=== PATIENT | female | born 1960 | race Caucasian/White ===

== ENCOUNTER 2018-06-09 21:30 | Emergency (ER) | payer OTHER ==
[~2018-06-09] VITALS: Ht 165.1 cm; Wt 52.2 kg
--- NOTE | 2018-06-09 22:23 | NUR ---
Dr. Kat at bedside for MSE.
[2018-06-09] MEDS ORDERED: predniSONE 10 MG TABLET PO ONE (22:30)
[2018-06-09] MEDS ORDERED: ALBUTEROL SULFATE 2.5 MG/3 ML NEBU NEB ONE (22:30)
[2018-06-09] MEDS ORDERED: IPRATROPIUM BROMIDE 0.5 MG/2.5 ML NEBU NEB ONE (22:30)
[2018-06-09] MEDS ORDERED: predniSONE 50 MG TABLET ONE (22:33)
[2018-06-09] MEDS ORDERED: predniSONE 10 MG TABLET ONE (22:33)
--- NOTE | 2018-06-09 22:35 | NUR ---
Respiratory at bedside.
[2018-06-09] MEDS ORDERED: IPRATROPIUM BROMIDE 0.5 MG/2.5 ML NEBU ONE (22:37)
[2018-06-09] MEDS ORDERED: ALBUTEROL SULFATE 2.5 MG/3 ML NEBU ONE (22:37)
--- NOTE | 2018-06-09 23:51 | NUR ---
Patient discharged to home in stable conditon. Written and verbal after care instructions given. Patient verbalizes understanding of instructions. Pt ambulated out of ER with steady gait, no acute signs of distress, VSS, all belongings taken.
[2018-06-09 23:53] VITALS: BP 114/69
== END 2018-06-09 23:53 | disposition home or self-care (01) ==
LOC: ER 21:34
DX: J45.901 Unspecified asthma with (acute) exacerbation (principal); F17.200 Nicotine dependence, unspecified, uncomplicated; Z88.0 Allergy status to penicillin
CPT/HCPCS: A4663; J3590; J7512

== ENCOUNTER 2022-08-09 21:03 | Emergency (ER) | payer OTHER ==
[~2022-08-09] VITALS: Ht 165.1 cm; Wt 52.2 kg
[2022-08-09 21:30] LABS: HEMATOCRIT 40.6 % (31.2-41.9); MEAN CORPUSCULAR HEMOGLOBIN 32.5 uug (24.7-32.8); MEAN CORPUSCULAR VOLUME 94.9 fL (75.5-95.3); PLATELET COUNT (AUTO) 201 K/uL (179-408)
[2022-08-09] MEDS ORDERED: MAG HYDROX/AL HYDROX/SIMETH 30 ML LIQUID UDC PO ONE (21:30)
[2022-08-09] MEDS ORDERED: IPRATROPIUM BROMIDE 0.5 MG/2.5 ML NEBU NEB ONE (21:30)
[2022-08-09] MEDS ORDERED: predniSONE 20 MG TABLET PO ONE (21:30)
[2022-08-09] MEDS ORDERED: ALBUTEROL SULFATE 2.5 MG/3 ML NEBU NEB ONE (21:30)
[2022-08-09] MEDS ORDERED: IPRATROPIUM BROMIDE 0.5 MG/2.5 ML NEBU ONE (21:36)
[2022-08-09] MEDS ORDERED: ALBUTEROL SULFATE 2.5 MG/ 0.5 ML NEBU ONE (21:36)
[2022-08-09 21:46] LABS: CREATININE 0.9 mg/dL (0.6-1.3); MAGNESIUM 1.9 mg/dL (1.8-2.4); POTASSIUM 3.5 mmol/L (3.5-5.1)
[2022-08-09] MEDS ORDERED: predniSONE 20 MG TABLET ONE (22:04)
[2022-08-09] MEDS ORDERED: MAG HYDROX/AL HYDROX/SIMETH 30 ML LIQUID UDC ONE (22:04)
[2022-08-09] MEDS ORDERED: ALBU6.7H9 INH (23:03)
[2022-08-09] MEDS ORDERED: ALBU0.63 NEB (23:03)
[2022-08-09] MEDS ORDERED: AZIT250T13 PO (23:03)
[2022-08-09] MEDS ORDERED: FLUT12AE5 INH (23:03)
[2022-08-09] MEDS ORDERED: PRED20TA PO (23:03)
--- NOTE | 2022-08-09 23:12 | NUR ---
Patient discharged to home in stable condition. A/Ox4. Ambulatory with a syeadt gait. NAD noted. Written and verbal after care instructions given. Patient verbalizes understanding of instructions. Stressed follow up or return to ER for worsening s/s. All belonings with patient.
[2022-08-09 23:13] VITALS: BP 121/85
== END 2022-08-09 23:14 | disposition home or self-care (01) ==
LOC: ER 21:07
DX: J45.902 Unspecified asthma with status asthmaticus (principal); U07.1 COVID-19; F17.210 Nicotine dependence, cigarettes, uncomplicated; Z88.0 Allergy status to penicillin
CPT/HCPCS: 99291; 80048; 83735; 85025; 36415; 71045; 94644; J7512; A4663; J3590

== ENCOUNTER 2022-10-24 10:46 | Emergency (ER) | payer OTHER ==
[~2022-10-24] VITALS: Ht 165.1 cm; Wt 52.2 kg
[~2022-10-24 10:46] MED LIST: ALBU0.63 NEB; ALBU6.7H9 INH; AZIT250T13 PO; FLUT12AE5 INH; PRED20TA PO
[2022-10-24] MEDS ORDERED: ALBUTEROL SULFATE 2.5 MG/3 ML NEBU ONE (11:23)
[2022-10-24] MEDS ORDERED: IPRATROPIUM BROMIDE 0.5 MG/2.5 ML NEBU ONE (11:23)
[2022-10-24] MEDS ORDERED: ALBUTEROL SULFATE 2.5 MG/3 ML NEBU NEB ONE (11:30)
[2022-10-24] MEDS ORDERED: IPRATROPIUM BROMIDE 0.5 MG/2.5 ML NEBU NEB ONE (11:30)
--- NOTE | 2022-10-24 11:32 | NUR ---
PATIENT WAS SEEN BY MD. SHAYLA SCHROEDER IN PROCESS. COVID SWAB SENT TO LAB
[2022-10-24] MEDS ORDERED: PRED50TA PO (12:30)
[2022-10-24] MEDS ORDERED: GUAI600T53 PO (12:30)
--- NOTE | 2022-10-24 12:31 | NUR ---
DC AND FOLLOW UP INSTRUCTIONS GIVEN AND EXPLAINED TO PATIENT WHO STATES SHE UNDERSTANDS ALL INSTRUCTIONS
== END 2022-10-24 12:31 | disposition home or self-care (01) ==
LOC: ER 10:49
DX: J06.9 Acute upper respiratory infection, unspecified (principal); B97.89 Other viral agents as the cause of diseases classified elsewhere; Z20.822 Contact with and (suspected) exposure to COVID-19; J45.909 Unspecified asthma, uncomplicated; Z88.0 Allergy status to penicillin
CPT/HCPCS: 71045; A4663; J3590

== ENCOUNTER → 2023-09-04 | Emergency (ER) | payer MEDICAID, OTHER ==
[~2023-09-04] VITALS: Ht 165.1 cm; Wt 47.6 kg
[~2023-09-04] MED LIST changes: +ALBUTEROL SULFATE 2.5 MG/3 ML NEBU NEB ONE; +ALBUTEROL SULFATE 2.5 MG/3 ML NEBU ONE; +AZIT500T PO; +AZITHROMYCIN 250 MG TABLET ONE; +AZITHROMYCIN 250 MG TABLET PO ONE; +GUAI600T53 PO; +IPRATROPIUM BROMIDE 0.5 MG/2.5 ML NEBU NEB ONE; +IPRATROPIUM BROMIDE 0.5 MG/2.5 ML NEBU ONE; +PRED50TA PO; +predniSONE 10 MG TABLET PO ONE; +predniSONE 20 MG TABLET ONE
[2023-09-04 13:27] VITALS: O2SAT 93
[2023-09-04 13:35] LABS: BASOPHILS # (AUTO) 0.3 K/UL (0.0-0.2); BASOPHILS % (AUTO) 2.3 % (0.0-2.0); EOSINOPHILS # (AUTO) 0.1 K/uL (0.0-0.7); EOSINOPHILS % (AUTO) 0.9 % (0.0-7.0); HEMATOCRIT 38.8 % (31.2-41.9); HEMOGLOBIN 12.9 g/dL (10.9-14.3); LYMPHOCYTES # (AUTO) 0.9 K/uL (0.8-4.8); LYMPHOCYTES % (AUTO) 7.5 % (20.5-51.5); MEAN CORPUSCULAR HEMOGLOBIN 31.4 uug (24.7-32.8); MEAN CORPUSCULAR HGB CONC 33 g/dL (32.3-35.6); MEAN CORPUSCULAR VOLUME 94.3 fL (75.5-95.3); MONOCYTES # (AUTO) 0.9 K/uL (0.1-1.30); MONOCYTES % (AUTO) 7.5 % (0.0-11.0); NEUTROPHILS # (AUTO) 9.8 K/uL (1.8-8.9); NEUTROPHILS % (AUTO) 81.8 % (38.5-71.5); PLATELET COUNT (AUTO) 239 K/uL (179-408); RED BLOOD CELL COUNT(AUTO) 4.11 MIL/uL (3.63-4.92); RED CELL DISTRIBUTION WIDTH 13.9 % (12.3-17.7)
[2023-09-04 13:45] LABS: CALCIUM 8.9 mg/dL (8.5-10.1); CARBON DIOXIDE 30 mmol/L (21-32); CHLORIDE 102 mmol/L (98-107); CREATININE 0.6 mg/dL (0.6-1.3); GLUCOSE 112 mg/dL (74-106); POTASSIUM 3.8 mmol/L (3.5-5.1); SODIUM SERUM 140 mmol/L (136-145); UREA NITROGEN, BLOOD 10 mg/dL (7-18)
[2023-09-04 13:46] LABS: DIFFERENTIAL COMMENT 1
[2023-09-04 13:55] LABS: ALANINE AMINOTRANSFERASE 15 U/L (14-59); ALBUMIN 3.3 g/dL (3.4-5.0); ALKALINE PHOSPHATASE 137 U/L (50-136); ASPARTATE AMINOTRANSFERASE 15 U/L (15-37); BILIRUBIN,DIRECT 0.2 mg/dL (0.0-0.2); BILIRUBIN,TOTAL 0.6 mg/dL (0.2-1.0); NT-PRO BNP 205 pg/mL (0-125); TOTAL PROTEIN, SERUM 7.3 g/dL (6.4-8.2)
[2023-09-04 14:27] VITALS: O2SAT 98
== END | disposition home or self-care (01) ==
LOC: ER 12:25
DX: J18.9 Pneumonia, unspecified organism (principal); J44.1 Chronic obstructive pulmonary disease with (acute) exacerbation; F17.210 Nicotine dependence, cigarettes, uncomplicated; Z88.0 Allergy status to penicillin; Z79.2 Long term (current) use of antibiotics; Z79.899 Other long term (current) drug therapy
CPT/HCPCS: 99285; 71045; 80076; 80048; 83880; 85025; 85379; 84484; 36415; 93005; 94644; J7512; 94760; A4663; J3590; Q0144

== ENCOUNTER 2024-01-09 14:58 | Emergency (ER) | payer MEDICAID, OTHER ==
[~2024-01-09] VITALS: Ht 165.1 cm; Wt 49.9 kg
[~2024-01-09 14:58] MED LIST changes: -ALBUTEROL SULFATE 2.5 MG/3 ML NEBU NEB ONE; -ALBUTEROL SULFATE 2.5 MG/3 ML NEBU ONE; -AZITHROMYCIN 250 MG TABLET ONE; -AZITHROMYCIN 250 MG TABLET PO ONE; -IPRATROPIUM BROMIDE 0.5 MG/2.5 ML NEBU NEB ONE; -IPRATROPIUM BROMIDE 0.5 MG/2.5 ML NEBU ONE; -predniSONE 10 MG TABLET PO ONE; -predniSONE 20 MG TABLET ONE
[2024-01-09] MEDS ORDERED: FLUT1DIS27 INH (16:25)
[2024-01-09] MEDS ORDERED: ALBU0.63 NEB ×2 (16:25→18:38)
[2024-01-09] MEDS: IV NORMAL SALINE 1000 ML BAG IV ONE (16:30)
[2024-01-09] MEDS ORDERED: ALBUTEROL SULFATE 2.5 MG/3 ML NEBU ONE ×2 (16:41)
[2024-01-09] MEDS ORDERED: IPRATROPIUM BROMIDE 0.5 MG/2.5 ML NEBU ONE (16:41)
[2024-01-09] MEDS ORDERED: CHOLECALCIFEROL 1,000 UNIT TABLET ONE (16:43)
[2024-01-09] MEDS ORDERED: predniSONE 10 MG TABLET ONE (16:43)
[2024-01-09] MEDS ORDERED: predniSONE 50 MG TABLET ONE (16:43)
[2024-01-09] MEDS ORDERED: MAGNESIUM SULFATE/D5W 200 ML ONE (16:43)
[2024-01-09 16:45] VITALS: O2SAT 96
[2024-01-09] MEDS: CHOLECALCIFEROL 1,000 UNIT TABLET PO SCH (16:45)
[2024-01-09] MEDS: predniSONE 10 MG TABLET PO ONE (16:45)
[2024-01-09 16:46] LABS: BASOPHILS # (AUTO) 0.1 K/UL (0.0-0.2); BASOPHILS % (AUTO) 0.6 % (0.0-2.0); EOSINOPHILS # (AUTO) 0.2 K/uL (0.0-0.7); EOSINOPHILS % (AUTO) 1.3 % (0.0-7.0); HEMATOCRIT 38.3 % (31.2-41.9); HEMOGLOBIN 12.9 g/dL (10.9-14.3); LYMPHOCYTES # (AUTO) 2.2 K/uL (0.8-4.8); LYMPHOCYTES % (AUTO) 17.7 % (20.5-51.5); MEAN CORPUSCULAR HEMOGLOBIN 31.2 uug (24.7-32.8); MEAN CORPUSCULAR HGB CONC 34 g/dL (32.3-35.6); MEAN CORPUSCULAR VOLUME 92.7 fL (75.5-95.3); MONOCYTES # (AUTO) 1.3 K/uL (0.1-1.30); MONOCYTES % (AUTO) 10.3 % (0.0-11.0); NEUTROPHILS # (AUTO) 8.8 K/uL (1.8-8.9); NEUTROPHILS % (AUTO) 70.1 % (38.5-71.5); PLATELET COUNT (AUTO) 262 K/uL (179-408); RED BLOOD CELL COUNT(AUTO) 4.13 MIL/uL (3.63-4.92); RED CELL DISTRIBUTION WIDTH 13.8 % (12.3-17.7); WHITE BLOOD COUNT (AUTO) 12.5 K/uL (3.8-11.8)
[2024-01-09] MEDS: ALBUTEROL SULFATE 2.5 MG/3 ML NEBU NEB ONE (17:00)
[2024-01-09] MEDS: IPRATROPIUM BROMIDE 0.5 MG/2.5 ML NEBU NEB ONE (17:00)
[2024-01-09 17:01] LABS: CALCIUM 9.1 mg/dL (8.5-10.1); CREATININE 0.7 mg/dL (0.6-1.3); POTASSIUM 3.2 mmol/L (3.5-5.1)
[2024-01-09 17:07] LABS: DIFFERENTIAL COMMENT 1
[2024-01-09] MEDS: MAGNESIUM SULFATE 2 GM in IV DEXTROSE 5% 100 ML IV ONE (17:16)
[2024-01-09] MEDS ORDERED: POTASSIUM BICARBONATE/CIT AC 25 MEQ TABLET.EFF ONE (17:46)
[2024-01-09] MEDS: POTASSIUM BICARBONATE/CIT AC 25 MEQ TABLET.EFF PO ONE (17:46)
[2024-01-09 18:00] VITALS: O2SAT 96
[2024-01-09] MEDS ORDERED: CODE473L6 PO (18:38)
[2024-01-09] MEDS ORDERED: ALBU18HF2 INH (18:38)
[2024-01-09] MEDS ORDERED: PRED50TA PO (18:38)
[2024-01-09 18:50] VITALS: O2SAT 96
== END 2024-01-09 18:56 | disposition home or self-care (01) ==
LOC: ER 15:01
DX: J44.1 Chronic obstructive pulmonary disease with (acute) exacerbation (principal); E87.6 Hypokalemia; J45.909 Unspecified asthma, uncomplicated; F17.200 Nicotine dependence, unspecified, uncomplicated; Z79.899 Other long term (current) drug therapy; Z60.2 Problems related to living alone; Z88.0 Allergy status to penicillin
CPT/HCPCS: 99291; 96365; 96361; 80048; 83735; 85025; 36415; 93005; 71045; 94644; J7512 ×2; J3475 ×2; J7040; A4606; A4663; J3590

== ENCOUNTER 2024-06-23 14:40 | Emergency (ER) | payer OTHER ==
[~2024-06-23] VITALS: Ht 165.1 cm; Wt 49.9 kg
[~2024-06-23 14:40] MED LIST changes: +ALBU18HF2 INH; +CODE473L6 PO; +FLUT1DIS27 INH
[2024-06-23 15:17] VITALS: O2SAT 95
[2024-06-23] MEDS: ALBUTEROL SULFATE 2.5 MG/3 ML NEBU NEB ONE (15:17)
[2024-06-23] MEDS: IPRATROPIUM BROMIDE 0.5 MG/2.5 ML NEBU NEB ONE (15:17)
[2024-06-23] MEDS ORDERED: ALBUTEROL SULFATE 2.5 MG/3 ML NEBU ONE (15:19)
[2024-06-23] MEDS ORDERED: IPRATROPIUM BROMIDE 0.5 MG/2.5 ML NEBU ONE (15:19)
[2024-06-23] MEDS ORDERED: methylPREDNISolone SOD SUCC 125 MG/2 ML VIAL ONE (15:20)
[2024-06-23 15:23] LABS: BASOPHILS # (AUTO) 0.1 K/UL (0.0-0.2); BASOPHILS % (AUTO) 1.3 % (0.0-2.0); EOSINOPHILS # (AUTO) 0.9 K/uL (0.0-0.7); HEMATOCRIT 38.8 % (31.2-41.9); HEMOGLOBIN 12.8 g/dL (10.9-14.3); LYMPHOCYTES # (AUTO) 1.9 K/uL (0.8-4.8); LYMPHOCYTES % (AUTO) 17.7 % (20.5-51.5); MEAN CORPUSCULAR HEMOGLOBIN 30.1 uug (24.7-32.8); MEAN CORPUSCULAR HGB CONC 33 g/dL (32.3-35.6); MEAN CORPUSCULAR VOLUME 91.4 fL (75.5-95.3); MONOCYTES % (AUTO) 9.2 % (0.0-11.0); NEUTROPHILS # (AUTO) 6.8 K/uL (1.8-8.9); NEUTROPHILS % (AUTO) 63.8 % (38.5-71.5); PLATELET COUNT (AUTO) 323 K/uL (179-408); RED BLOOD CELL COUNT(AUTO) 4.24 MIL/uL (3.63-4.92); RED CELL DISTRIBUTION WIDTH 14.3 % (12.3-17.7); WHITE BLOOD COUNT (AUTO) 10.6 K/uL (3.8-11.8)
[2024-06-23 15:28] LABS: DIFFERENTIAL COMMENT 1
[2024-06-23 15:33] LABS: CALCIUM 10.2 mg/dL (8.5-10.1); CARBON DIOXIDE 29 mmol/L (21-32); CHLORIDE 99 mmol/L (98-107); CREATININE 0.6 mg/dL (0.6-1.3); GLUCOSE 119 mg/dL (74-106); POTASSIUM 3.9 mmol/L (3.5-5.1); SODIUM SERUM 139 mmol/L (136-145); UREA NITROGEN, BLOOD 8 mg/dL (7-18)
[2024-06-23 15:35] VITALS: O2SAT 99
[2024-06-23] MEDS: methylPREDNISolone SOD SUCC 125 MG/2 ML VIAL IV ONE (15:38)
[2024-06-23 15:45] LABS: ALANINE AMINOTRANSFERASE 17 U/L (14-59); ALBUMIN 3.1 g/dL (3.4-5.0); ALKALINE PHOSPHATASE 178 U/L (50-136); ASPARTATE AMINOTRANSFERASE 7 U/L (15-37); BILIRUBIN,DIRECT 0.2 mg/dL (0.0-0.2); BILIRUBIN,TOTAL 0.6 mg/dL (0.2-1.0); NT-PRO BNP 76 pg/mL (0-125); TOTAL PROTEIN, SERUM 7.3 g/dL (6.4-8.2)
[2024-06-23] MEDS ORDERED: HYDR473S4 PO (17:03)
[2024-06-23] MEDS ORDERED: BUDE10.2 INH (17:03)
[2024-06-23] MEDS ORDERED: ALBU2.5V13 NEB (17:03)
[2024-06-23] MEDS ORDERED: CIPR-262 PO (17:03)
[2024-06-23] MEDS ORDERED: PRED20TA PO (17:03)
[2024-06-23] MEDS ORDERED: CIPROFLOXACIN HCL 250 MG TABLET ONE (17:16)
[2024-06-23] MEDS ORDERED: HYDROCODONE BIT/HOMATROPINE 5 ML UDC ONE (17:16)
[2024-06-23] MEDS: CIPROFLOXACIN HCL 250 MG TABLET PO ONE (17:24)
[2024-06-23] MEDS: HYDROCODONE BIT/HOMATROPINE 5 ML UDC PO ONE (17:24)
[2024-06-23 17:30] VITALS: BP 96/72; O2SAT 96
== END 2024-06-23 17:29 | disposition home or self-care (01) ==
LOC: ER 14:40
DX: J44.1 Chronic obstructive pulmonary disease with (acute) exacerbation (principal); F17.210 Nicotine dependence, cigarettes, uncomplicated; Z79.51 Long term (current) use of inhaled steroids; Z79.891 Long term (current) use of opiate analgesic; Z79.52 Long term (current) use of systemic steroids; Z79.899 Other long term (current) drug therapy; Z20.822 Contact with and (suspected) exposure to COVID-19; Z60.2 Problems related to living alone; Z88.0 Allergy status to penicillin
CPT/HCPCS: 99284; 96374; 71045; 87426; 80076; 80048; 83880; 85025; 84484; 36415; 94640; J2919; 94760; A4663; J3590

== ENCOUNTER 2024-07-01 10:51 | Emergency (ER) | payer OTHER ==
[~2024-07-01] VITALS: Ht 165.1 cm; Wt 52.6 kg
[~2024-07-01 10:51] MED LIST changes: +ALBU2.5V13 NEB; +BUDE10.2 INH; +CIPR-262 PO; +HYDR473S4 PO
[2024-07-01] MEDS ORDERED: ALBUTEROL SULFATE 2.5 MG/3 ML NEBU ONE (11:26)
[2024-07-01] MEDS ORDERED: IPRATROPIUM BROMIDE 0.5 MG/2.5 ML NEBU ONE (11:26)
[2024-07-01 11:30] LABS: BASOPHILS # (AUTO) 0.2 K/UL (0.0-0.2); BASOPHILS % (AUTO) 2.3 % (0.0-2.0); EOSINOPHILS # (AUTO) 0.3 K/uL (0.0-0.7); EOSINOPHILS % (AUTO) 3.5 % (0.0-7.0); HEMATOCRIT 38.9 % (31.2-41.9); HEMOGLOBIN 12.8 g/dL (10.9-14.3); LYMPHOCYTES # (AUTO) 0.9 K/uL (0.8-4.8); LYMPHOCYTES % (AUTO) 9.6 % (20.5-51.5); MEAN CORPUSCULAR HEMOGLOBIN 30.2 uug (24.7-32.8); MEAN CORPUSCULAR HGB CONC 33 g/dL (32.3-35.6); MEAN CORPUSCULAR VOLUME 91.7 fL (75.5-95.3); MONOCYTES # (AUTO) 0.7 K/uL (0.1-1.30); MONOCYTES % (AUTO) 7.6 % (0.0-11.0); NEUTROPHILS # (AUTO) 6.9 K/uL (1.8-8.9); PLATELET COUNT (AUTO) 331 K/uL (179-408); RED BLOOD CELL COUNT(AUTO) 4.24 MIL/uL (3.63-4.92)
[2024-07-01 11:48] LABS: ALANINE AMINOTRANSFERASE 18 U/L (14-59); ALKALINE PHOSPHATASE 174 U/L (50-136); ASPARTATE AMINOTRANSFERASE 11 U/L (15-37); BILIRUBIN,DIRECT 0.2 mg/dL (0.0-0.2); BILIRUBIN,TOTAL 0.6 mg/dL (0.2-1.0); CALCIUM 9.5 mg/dL (8.5-10.1); CARBON DIOXIDE 27 mmol/L (21-32); CHLORIDE 101 mmol/L (98-107); CREATININE 0.5 mg/dL (0.6-1.3); GLUCOSE 102 mg/dL (74-106); POTASSIUM 4.2 mmol/L (3.5-5.1); SODIUM SERUM 137 mmol/L (136-145); TOTAL PROTEIN, SERUM 7.3 g/dL (6.4-8.2); UREA NITROGEN, BLOOD 9 mg/dL (7-18)
[2024-07-01 11:58] LABS: DIFFERENTIAL COMMENT 1
[2024-07-01 12:00] VITALS: O2SAT 99
[2024-07-01] MEDS: IPRATROPIUM BROMIDE 0.5 MG/2.5 ML NEBU NEB ONE (12:00)
[2024-07-01] MEDS: ALBUTEROL SULFATE 2.5 MG/3 ML NEBU NEB ONE (12:00)
[2024-07-01] MEDS ORDERED: DEXAMETHASONE SOD PHOSPHATE 4 MG INJ ONE (12:33)
[2024-07-01] MEDS ORDERED: SWABABLE VALVE TRANSFER SET EA MC ONE (12:38)
[2024-07-01] MEDS ORDERED: IV NORMAL SALINE 250 ML IV ONE (12:38)
[2024-07-01] MEDS ORDERED: IOHEXOL 300MG/ML 100 ML INFUS..BTL ONE (12:38)
[2024-07-01] MEDS: DEXAMETHASONE SOD PHOSPHATE 4 MG INJ IV ONE (12:43)
[2024-07-01 13:20] VITALS: O2SAT 99
[2024-07-01] MEDS ORDERED: DEXA4TAB68 PO (14:28)
[2024-07-01] MEDS ORDERED: LEVE500T9 PO (14:28)
[2024-07-01] MEDS ORDERED: ALBU8.5H8 INH (14:28)
[2024-07-01 15:07] VITALS: BP 134/75; O2SAT 97
== END 2024-07-01 14:30 | disposition left against medical advice (07) ==
LOC: ER 10:51
DX: J44.1 Chronic obstructive pulmonary disease with (acute) exacerbation (principal); C34.90 Malignant neoplasm of unspecified part of unspecified bronchus or lung; C79.31 Secondary malignant neoplasm of brain; G93.6 Cerebral edema; F17.200 Nicotine dependence, unspecified, uncomplicated; Z79.899 Other long term (current) drug therapy; Z79.891 Long term (current) use of opiate analgesic; Z79.51 Long term (current) use of inhaled steroids; Z79.52 Long term (current) use of systemic steroids; Z60.2 Problems related to living alone
CPT/HCPCS: 99291; 70450; 96374; 71045; 80076; 80048; 82607; 85025; 85651; 84484; 36415; 93005 ×2; 71260; 74177; 94644; J1100; Q9967; A4606; A4663; J3590